=== PATIENT | male | born 1980 | race Caucasian/White ===

== ENCOUNTER 2016-10-16 00:23 | Emergency (ER) | payer OTHER ==
[~2016-10-16] VITALS: Ht 170.1 cm; Wt 90.7 kg
[~2016-10-16 00:23] MED LIST: CATAFLAM50 MG PO; CELEXA40 MG PO; CLARITIN10 MG PO; NAPROSYN500 MG PO; PREDNICOT20 MG PO; PREDNISONE50 MG PO; TESSALON PERLE200 MG PO; TOBREX OPHTH O3.5 GM OPH; TRIMOX500 MG PO; XANAX0.5 MG PO; ZITHROMAX Z PA250 MG PO; ZITHROMAX250 MG PO
== END 2016-10-16 01:43 | disposition home or self-care (01) ==
LOC: ED 00:23
DX: M25.561 Pain in right knee (principal); F17.200 Nicotine dependence, unspecified, uncomplicated

== ENCOUNTER 2017-05-21 20:47 | Emergency (ER) | payer OTHER ==
[~2017-05-21] VITALS: Ht 170.1 cm; Wt 99.8 kg
[2017-05-21] MEDS ORDERED: ZITHROMAX250 MG PO (21:32)
[2017-05-21] MEDS ORDERED: PROAIR HFA8.5 GM INH (21:32)
[2017-05-21] MEDS ORDERED: MEDROL DOSEPAK4 MG PO (21:32)
== END 2017-05-21 21:54 | disposition home or self-care (01) ==
LOC: ED 20:47
DX: J40 Bronchitis, not specified as acute or chronic (principal); F17.200 Nicotine dependence, unspecified, uncomplicated

== ENCOUNTER 2018-04-30 18:34 | Emergency (ER) | payer OTHER ==
[~2018-04-30] VITALS: Ht 1737 cm; Wt 104.3 kg
[~2018-04-30 18:34] MED LIST changes: +MEDROL DOSEPAK4 MG PO; +PROAIR HFA8.5 GM INH
== END 2018-04-30 20:02 | disposition home or self-care (01) ==
LOC: ED 18:34
DX: S96.912A Strain of unspecified muscle and tendon at ankle and foot level, left foot, initial encounter (principal); W18.40XA Slipping, tripping and stumbling without falling, unspecified, initial encounter; Y93.01 Activity, walking, marching and hiking; Y92.89 Other specified places as the place of occurrence of the external cause; Y99.8 Other external cause status

== ENCOUNTER 2019-03-30 20:09 | Emergency (ER) | payer OTHER ==
[~2019-03-30] VITALS: Ht 170.1 cm; Wt 99.8 kg
[2019-03-30] MEDS ORDERED: CEFADROXIL500 M1 PO (20:20)
== END 2019-03-30 20:35 | disposition home or self-care (01) ==
LOC: ED 20:09
DX: S61.211A Laceration without foreign body of left index finger without damage to nail, initial encounter (principal); I10 Essential (primary) hypertension; W26.0XXA Contact with knife, initial encounter; Y93.89 Activity, other specified; Y92.89 Other specified places as the place of occurrence of the external cause; Y99.8 Other external cause status

== ENCOUNTER 2019-04-10 20:16 | Emergency (ER) | payer OTHER ==
[~2019-04-10] VITALS: Ht 170.1 cm; Wt 100.7 kg
[~2019-04-10 20:16] MED LIST changes: +CEFADROXIL500 M1 PO
[2019-04-10 20:39] LABS: BASO # 0.1 10*3/uL (0.0-0.1); BASO % 0.5 % (0.0-1.0); EOS # 0.2 10*3/uL (0.0-0.4); EOS % 1.5 % (1.0-4.0); HEMATOCRIT 48.2 % (42.0-52.0); HEMOGLOBIN 16.3 g/dl (14.0-18.0); LYMPH # 2.5 10*3/uL (1.3-4.4); LYMPH % 18.5 % (27.0-41.0); MEAN CORPUSCULAR HGB 28.7 pg (27.0-31.0); MEAN CORPUSCULAR HGB CONC 33.8 g/dl (33.0-37.0); MEAN PLATELET VOLUME 8.8 fl (9.6-12.3); MONO # 0.8 10*3/uL (0.1-1.0); MONO % 6.3 % (3.0-9.0); NEUT # 9.7 10*3/uL (2.3-7.9); NEUT % 72.8 % (47.0-73.0); PLATELET COUNT AUTOMATED 282 10*3/uL (130-400); RED BLOOD COUNT 5.67 10*6/uL (4.50-5.90); WHITE BLOOD COUNT 13.3 10*3/uL (4.8-10.8)
[2019-04-10] MEDS ORDERED: ATORVASTATIN CA20 M1 PO (20:39)
[2019-04-10] MEDS ORDERED: HYDROCHLOROTHIA50 M1 PO (20:40)
[2019-04-10] MEDS ORDERED: TRAZODONE50 MG PO (20:40)
[2019-04-10] MEDS ORDERED: LISINOPRIL10 M1 PO (20:40)
[2019-04-10] MEDS ORDERED: CITALOPRAM HYDR40 MG PO (20:41)
[2019-04-10] MEDS ORDERED: ALPRAZOLAM0.5 M3 PO (20:41)
[2019-04-10 20:50] LABS: ACT PARTIAL THROMBO TIME 25.9 SECONDS (20.0-32.1); INTERNATIONAL NORM RATIO 0.9 (2.0-3.5)
[2019-04-10 20:56] LABS: ALBUMIN 3.9 gm/dl (3.1-4.5); ALKALINE PHOSPHATASE 82 U/L (45-117); BUN 12 mg/dl (7-24); CHLORIDE 104 mmol/L (98-107); CREATININE 1.39 mg/dL (0.70-1.30); POTASSIUM 3.7 mmol/L (3.5-5.1); SGOT/AST 22 IU/L (3-35); SGPT/ALT 55 U/L (12-78); SODIUM 139 mmol/L (136-145); TOTAL PROTEIN 8.4 gm/dL (6.4-8.2)
[2019-04-10 20:59] LABS: TROPONIN I < 0.015 ng/ml (<0.045)
== END 2019-04-11 00:40 | disposition home or self-care (01) ==
LOC: ED 20:16
PROVIDERS: Emergency Medicine
DX: R07.9 Chest pain, unspecified (principal); R06.02 Shortness of breath; I10 Essential (primary) hypertension; E78.00 Pure hypercholesterolemia, unspecified; F17.200 Nicotine dependence, unspecified, uncomplicated; Z79.2 Long term (current) use of antibiotics; Z79.899 Other long term (current) drug therapy

== ENCOUNTER 2019-04-16 15:39 | Emergency (ER) | payer OTHER ==
[~2019-04-16] VITALS: Ht 170.1 cm; Wt 105.7 kg
[~2019-04-16 15:39] MED LIST changes: +ALPRAZOLAM0.5 M3 PO; +ATORVASTATIN CA20 M1 PO; +CITALOPRAM HYDR40 MG PO; +HYDROCHLOROTHIA50 M1 PO; +LISINOPRIL10 M1 PO; +TRAZODONE50 MG PO
[2019-04-16 16:16] LABS: BASO # 0.1 10*3/uL (0.0-0.1); BASO % 0.4 % (0.0-1.0); EOS # 0.1 10*3/uL (0.0-0.4); EOS % 0.4 % (1.0-4.0); HEMATOCRIT 48.1 % (42.0-52.0); HEMOGLOBIN 16.7 g/dl (14.0-18.0); LYMPH # 2.4 10*3/uL (1.3-4.4); LYMPH % 16.4 % (27.0-41.0); MEAN CELL VOLUME 81.8 fl (80.0-94.0); MEAN CORPUSCULAR HGB 28.4 pg (27.0-31.0); MEAN CORPUSCULAR HGB CONC 34.7 g/dl (33.0-37.0); MEAN PLATELET VOLUME 9.3 fl (9.6-12.3); MONO # 0.9 10*3/uL (0.1-1.0); NEUT # 11.3 10*3/uL (2.3-7.9); NEUT % 76.4 % (47.0-73.0); PLATELET COUNT AUTOMATED 350 10*3/uL (130-400); RED BLOOD COUNT 5.88 10*6/uL (4.50-5.90); RED CELL DISTRI WIDTH 12.6 % (0-14.5); WHITE BLOOD COUNT 14.8 10*3/uL (4.8-10.8)
[2019-04-16 16:26] LABS: ACT PARTIAL THROMBO TIME 25.4 SECONDS (20.0-32.1)
[2019-04-16 16:31] LABS: ALBUMIN 4.1 gm/dl (3.1-4.5); ALKALINE PHOSPHATASE 87 U/L (45-117); BUN 13 mg/dl (7-24); CHLORIDE 102 mmol/L (98-107); CREATININE 1.41 mg/dL (0.70-1.30); POTASSIUM 3.4 mmol/L (3.5-5.1); SGOT/AST 26 IU/L (3-35); SGPT/ALT 63 U/L (12-78); SODIUM 135 mmol/L (136-145); TOTAL PROTEIN 8.5 gm/dL (6.4-8.2)
[2019-04-16 16:35] LABS: TROPONIN I < 0.015 ng/ml (<0.045)
== END 2019-04-16 20:34 | disposition left against medical advice (07) ==
LOC: ED 15:39
PROVIDERS: Emergency Medicine
DX: R07.89 Other chest pain (principal); R51 Headache; R20.0 Anesthesia of skin; I10 Essential (primary) hypertension; E78.00 Pure hypercholesterolemia, unspecified; Z79.899 Other long term (current) drug therapy

== ENCOUNTER → 2019-04-28 | Outpatient (CLI) | payer OTHER ==
[~2019-04-28] MED LIST changes: +OMEPRAZOLE40 MG PO
--- NOTE | 2019-04-28 10:10 | NUR ---
INFORMED CONSENT SIGNED FOR STANDARD STRESS TEST WITH DR. HUGHES. RESTING EKG NSR HR 77, BP 114/64. COMPLETED 9:20 OF A STANDARD RAY PROTOCOL COMPLETING 3:00 STAGE III, 3.4MPH/14% GRADE. TEST TERMINATED D/T FATIGUE. PEAK HEART RATE OF 159 ACHIEVED WHICH IS 86% PREDICTED MAXIMUM AND A PEAK BP OF 154/80. HAS AN AVERAGE EXERCISE TOLERANCE. NONDIAGNOSTIC ST CHANGES NOTED WITH NO ARRHYTHMIAS. PT HAD NO C/O. LAST RECOVERY HR 115, BP 124/82. THIS IS A NEGATIVE STRESS TEST. LEFT CARDIOLOGY IN STABLE CONDITION.
== END | disposition home or self-care (01) ==
LOC: CARD 00:26
DX: I49.8 Other specified cardiac arrhythmias (principal)

== ENCOUNTER 2019-11-20 18:03 | Emergency (ER) | payer OTHER ==
[~2019-11-20] VITALS: Wt 99.8 kg
[2019-11-20] MEDS ORDERED: AUGMENTIN 875-875 MG PO (18:50)
== END 2019-11-20 18:27 | disposition home or self-care (01) ==
LOC: ED 18:03
DX: K02.9 Dental caries, unspecified (principal); Z79.899 Other long term (current) drug therapy

== ENCOUNTER 2020-08-30 08:25 | Emergency (ER) | payer OTHER ==
[~2020-08-30] VITALS: Ht 170.1 cm; Wt 95.3 kg
[~2020-08-30 08:25] MED LIST changes: +AUGMENTIN 875-875 MG PO
== END 2020-08-30 10:04 | disposition home or self-care (01) ==
LOC: ED 08:25
DX: M77.8 Other enthesopathies, not elsewhere classified (principal); Z79.899 Other long term (current) drug therapy; Z98.890 Other specified postprocedural states

== ENCOUNTER 2021-06-03 17:51 | Emergency (ER) | payer OTHER ==
[~2021-06-03] VITALS: Ht 170.1 cm; Wt 104.3 kg
== END 2021-06-03 20:19 | disposition home or self-care (01) ==
LOC: ED 17:51
DX: S89.92XA Unspecified injury of left lower leg, initial encounter (principal); M25.562 Pain in left knee; Z79.899 Other long term (current) drug therapy; W18.39XA Other fall on same level, initial encounter; Y93.89 Activity, other specified; Y92.89 Other specified places as the place of occurrence of the external cause; Y99.8 Other external cause status

== ENCOUNTER 2023-07-03 15:32 | Emergency (ER) | payer OTHER ==
[~2023-07-03] VITALS: Ht 170.1 cm; Wt 124.7 kg
[2023-07-03] MEDS ORDERED: Labetalol Hydrochloride 20 MG/4 ML SYR IV ONE (15:55)
[2023-07-03 16:06] LABS: BASO # 0.1 10*3/uL (0.0-0.1); BASO % 1.1 % (0.0-1.0); EOS # 0.3 10*3/uL (0.0-0.4); EOS % 4.7 % (1.0-4.0); HEMATOCRIT 49.8 % (42.0-52.0); LYMPH # 1.1 10*3/uL (1.3-4.4); LYMPH % 17.4 % (27.0-41.0); MEAN CELL VOLUME 82.6 fl (80.0-94.0); MEAN CORPUSCULAR HGB 26.9 pg (27.0-31.0); MEAN CORPUSCULAR HGB CONC 32.5 g/dl (33.0-37.0); MEAN PLATELET VOLUME 7.6 fl (9.6-12.3); MONO # 0.7 10*3/uL (0.1-1.0); NEUT # 4.3 10*3/uL (2.3-7.9); PLATELET COUNT AUTOMATED 218 10*3/uL (130-400); RED BLOOD COUNT 6.03 10*6/uL (4.50-5.90); RED CELL DISTRI WIDTH 13.6 % (0-14.5); WHITE BLOOD COUNT 6.5 10*3/uL (4.8-10.8)
[2023-07-03 16:39] LABS: ALKALINE PHOSPHATASE 73 U/L (46-116); BUN 9 mg/dl (9-23); CHLORIDE 101 mmol/L (98-107); POTASSIUM 3.8 mmol/L (3.4-5.1); SGPT/ALT 29 U/L (5-49)
== END 2023-07-03 17:38 | disposition home or self-care (01) ==
LOC: ED 15:32
PROVIDERS: Physician Assistant Medical
DX: J06.9 Acute upper respiratory infection, unspecified (principal); Z20.822 Contact with and (suspected) exposure to COVID-19; I10 Essential (primary) hypertension; Z79.2 Long term (current) use of antibiotics; Z79.899 Other long term (current) drug therapy

== ENCOUNTER 2024-04-04 08:03 | Emergency (ER) | payer OTHER ==
[~2024-04-04] VITALS: Ht 170.1 cm; Wt 122.5 kg
[2024-04-04] MEDS ORDERED: AVPAK AZITHROM250 MG PO (09:31)
== END 2024-04-04 09:55 | disposition home or self-care (01) ==
LOC: ED 08:03
DX: J40 Bronchitis, not specified as acute or chronic (principal); Z20.822 Contact with and (suspected) exposure to COVID-19; I10 Essential (primary) hypertension; K21.9 Gastro-esophageal reflux disease without esophagitis; E78.00 Pure hypercholesterolemia, unspecified; Z98.890 Other specified postprocedural states